=== PATIENT | female | born 1940 | race Caucasian/White ===

== ENCOUNTER 2021-12-21 18:58 | Inpatient (IN) ==
[2021-12-21] MEDS ORDERED: ONDANSETRON 4 MG/2 ML VIAL IV ONE (19:14)
[2021-12-21] MEDS ORDERED: 0.9 % SODIUM CHLORIDE 500 ML IV ONE (19:14)
[2021-12-21 19:30] LABS: POC Calcium, Ionized 0.94 (1.16-1.32); POC Creatinine 2.4 (0.6-1.2); POC Potassium 4.3 (3.3-5.1)
[2021-12-21] MEDS ORDERED: AZITHROMYCIN 250 MG TABLET PO ONE (19:38)
[2021-12-21] MEDS ORDERED: cefTRIAXone 1 GM in DEXTROSE 5% IN WATER 50 ML IV SCH (19:45)
[2021-12-21 20:53] LABS: Basophils # (Auto) 0.04 K/mcL (0.00-0.30); Basophils % (Auto) 0.6 % (0.0-2.0); Eosinophils # (Auto) 0.07 K/mcL (0.00-0.70); Eosinophils % (Auto) 1.1 % (0.0-7.0); Hematocrit 35.7 % (34.1-44.9); Lymphocytes # (Auto) 1.45 K/mcL (1.50-4.80); Lymphocytes % (Auto) 21.9 % (15.5-49.0); Mean Cell Volume 82.3 fL (80.0-100.0); Mean Corpuscular HGB Conc 30.8 g/dL (31.0-36.0); Mean Platelet Volume 12.5 fL (7.4-10.4); Monocytes # (Auto) 0.67 K/mcL (0.10-0.90); Monocytes % (Auto) 10.1 % (1.0-12.0); Neutrophils % (Auto) 66.3 % (38.0-78.0); Platelet Count 194 K/mcL (140-440); RBC 4.34 M/mcL (3.59-5.38); Red Cell Distribution Width 18.7 % (11.5-14.5); WBC 6.6 K/mcL (4.5-11.0)
[2021-12-21 21:07] LABS: ALT/SGPT 17 U/L (<40); AST/SGOT 24 U/L (<32); Albumin 3.9 gm/dL (3.2-5.2); Albumin/Globulin Ratio 1.1 (1.0-2.3); Alkaline Phosphatase 166 U/L (39-117); Bilirubin,Total 1.3 mg/dL (0.1-1.0); Blood Urea Nitrogen 40 mg/dL (8-23); Calcium 8.7 mg/dL (8.6-10.4); Carbon Dioxide 19 mmol/L (22-30); Chloride 96 mmol/L (96-108); Globulin 3.5 gm/dL (2.2-3.7); Glomerular Filtration Rate 21; Glucose 121 mg/dL (70-105)
--- NOTE | 2021-12-21 21:54 | Internal Med History&Physical ---
HPI History of Present Illness Patient information: Note initiated : 12/21/21 at 9:48 pm Service Date, if different from initiated Date: [as above] Patient: Alva Soriano a 81 y/o F admitted on for Shortness of breath. Chief Complaint: [Weakness, dizziness] Chief complaint: Weakness, dizziness History of present illness: Ms. 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 Unfortunately her family are out of town and are unable to check up on her. She states that she tried to walk but felt quite dizzy. She denied any shortness of breath, chest pain or palpitations. She has been taking her medications as prescribed. She has not missed any doses. She states that no rmally she takes 2 tablets of torsemide in the morning, and 1 as needed in the evening. She states she has lost a significant amount of weight and usually weighs 150 pounds. She is now close to 134 pounds. She was recently seen by [facility] by Dr. Mcintyre last year to establish care. The patient will be admitted under the hospitalist service for further management and evaluation of her suspected drug-induced acute kidney injury as she was found to have a creatinine of 2.4. Review of Systems All systems: reviewed and no additional remarkable complaints except as stated Constitutional Constitutional: Present as per HPI EENT Eyes: Present as per HPI; Absent blurry vision Cardiovascular Cardiovascular: Present as per HPI; Absent chest pain, dyspnea, dyspnea on exertion, leg edema or palpatations Respiratory Respiratory: Present as per HPI; Absent cough, dyspnea, dyspnea on exertion, wheezing or stridor Gastrointestinal Gastrointestinal: Present as per HPI; Absent abdominal pain, diarrhea, dysphagia, hematemesis, melena, nausea or vomiting Musculoskeletal Musculoskeletal: Present as per HPI; Absent joint swelling, limited range of motion, muscle cramps, muscle weakness or myalgias Integumentary Integumentary: Present as per HPI; Absent erythema, new lesions, rash or wounds Neurological Neurological: Present as per HPI; Absent abnormal gait, behavioral changes, focal weakness, headache(s), loss of vision, numbness, sensory deficit or syncope Endocrine Endocrine: Absent change in body appearance, fatigue or heat intolerance Hematologic/Lymphatic Hematologic/Lymphatic: Present as per HPI PFSH PFSH All Active Problems (Updated 12/21/21 @ 21:52 by Dalia Root MD) Chronic atrial fibrillation (Acute) Nonischemic cardiomyopathy (Acute) Lactic acidosis (Acute) MALIK (acute kidney injury) (Acute) Chronic systolic congestive heart failure (Acute) Obstructive sleep apnea (Acute) Allergic reaction (Acute) Chest tightness (Acute) Chest pain (Acute) Hypersomnia (Chronic) Headache (Chronic) History of appendectomy (Chronic) History of hysterectomy (Chronic) Esophagitis (Chronic) Carcinoma in situ of breast (Chronic) Neuropathy (Chronic) Constipation (Chronic) Heart failure (Chronic) Dysuria (Chronic) Snoring (Chronic) Medical History (Updated 12/21/21 @ 21:52 by Dalia Root MD) Carcinoma in situ of breast Constipation Dysuria Esophagitis Headache Heart failure Hypersomnia Neuropathy Obstructive sleep apnea Snoring Surgical History History of appendectomy History of hysterectomy Family History Mother Rheumatic fever Social History occupational status: retired alcohol intake frequency: does not drink substance use type: does not use MEDS/ALLERGIES Home Medications and Allergies Home Medications Medication Instructions Recorded Confirmed Type carvedilol 3.125 mg tablet 3.125 mg PO BID 08/31/20 12/26/20 History sacubitril 24 mg-valsartan 26 mg 1 tab PO BID 08/31/20 12/26/20 History tablet (Entresto) tamoxifen 20 mg tablet 20 mg PO QDAY 08/31/20 12/26/20 History famotidine 10 mg tablet 10 mg PO QDAY 11/21/20 12/26/20 History ivabradine 5 mg tablet (Corlanor) 5 mg PO BID 11/21/20 12/26/20 History loratadine 10 mg tablet 10 mg PO QDAY #14 tab 12/15/20 12/26/20 Rx olopatadine 0.1 % eye drops 1 drp OPHTHALMIC (EYE) BID #5 ml 12/15/20 12/26/20 Rx aluminum-mag hydroxide-simethicone 15 ml PO PRN 12/21/21 12/21/21 History 400 mg-400 mg-40 mg/5 mL oral susp (Antacid-Antigas) amiodarone 200 mg tablet 1 tab PO QDAY 12/21/21 12/21/21 History apixaban 5 mg tablet (Eliquis) 1 tab PO BID 12/21/21 12/21/21 History dronedarone 400 mg tablet (Multaq) 1 tab PO BID 12/21/21 12/21/21 History furosemide 20 mg tablet 1 tab PO QDP PRN 12/21/21 12/21/21 History levothyroxine 75 mcg tablet 1 tab PO QDAY 12/21/21 12/21/21 History lorazepam 0.5 mg tablet 1 tab PO BIDP PRN 12/21/21 12/21/21 History metoprolol succinate 25 mg 1 tab PO BID 12/21/21 12/21/21 History tablet,extended release 24 hr mirtazapine 7.5 mg tablet 1 tab PO HS 12/21/21 12/21/21 History pantoprazole 40 mg tablet,delayed 1 tab PO QDAY 12/21/21 12/21/21 History release sacubitril 24 mg-valsartan 26 mg 1 tab PO BID 12/21/21 12/21/21 History tablet (Entresto) spironolactone 25 mg tablet 1 tab PO QDAY 12/21/21 12/21/21 History sucralfate 1 gram tablet 1 tab PO QID 12/21/21 12/21/21 History torsemide 20 mg tablet 1 tab PO BID 12/21/21 12/21/21 History Allergies Allergy/AdvReac Type Severity Reaction Status Date / Time Opioids - Morphine Analogues Allergy Unknown Vomiting Verified 12/21/21 19:02 EXAM Constitutional Vitals: Temp Pulse Resp BP Pulse Ox 97.6 F 59 L 27 H 100/67 91 12/21/21 18:58 12/21/21 21:16 12/21/21 21:16 12/21/21 21:16 12/21/21 21:16 General appearance: average body habitus Head Head exam: Present atraumatic, normal inspection and normocephalic Eye Eye exam: Present EOMI, normal appearance and PERRL; Absent conjunctival injection ENT ENT exam: Present mucous membranes dry and normal exam Neck Neck exam: Present full ROM; Absent lymphadenopathy Respiratory Respiratory exam: Present normal respiratory exam and CTAB; Absent decreased breath sounds, respiratory distress or wheezes Cardiovascular Cardiovascular exam: Present normal rate and rhythm, gallop and irregular rhythm; Absent JVD GI/Abdominal GI/Abdominal exam: Present normal bowel sounds and soft; Absent diminished bowel sounds, distended, guarding, mass, rebound or tenderness Neurological Exam Neurological exam: Present alert, CN II-XII intact and oriented X3 Psychiatric Psychiatric exam: Present normal affect and normal mood Skin Skin exam: Present intact and warm; Absent erythema, pallor, petechiae or rash DATA Data Completed and Pending Labs: Labs from last 24 hours 12/21/21 12/21/21 12/21/21 20:05 19:57 19:57 WBC RBC Hgb Hct POC Hct MCV MCH MCHC RDW Plt Count MPV Neut % (Auto) Lymph % (Auto) Mora % (Auto) Eos % (Auto) Baso % (Auto) Lymph # (Auto) Mora # (Auto) Eos # (Auto) Baso # (Auto) Absolute Neutrophils VBG Lactic Acid 2.1 H POC Sodium Sodium 135 POC Potassium Potassium 4.4 POC Chloride Chloride 96 Carbon Dioxide 19 L POC Total CO2 Anion Gap 20.0 H POC BUN BUN 40 H Creatinine 2.2 H POC Creatinine GFR Calculation 21 Glucose 121 H POC Glucose Calcium 8.7 POC WB Ioniz Calcium Total Bilirubin 1.3 H AST 24 ALT 17 Alkaline Phosphatase 166 H NT-Pro-B Natriuret Pep 93769.0 H Total Protein 7.4 Albumin 3.9 Globulin 3.5 Albumin/Globulin Ratio 1.1 Procalcitonin 0.19 H POC Troponin I 0.03 12/21/21 12/21/21 19:57 19:27 WBC 6.6 RBC 4.34 Hgb 11.0 L Hct 35.7 POC Hct 37.0 MCV 82.3 MCH 25.3 L MCHC 30.8 L RDW 18.7 H Plt Count 194 MPV 12.5 H Neut % (Auto) 66.3 Lymph % (Auto) 21.9 Mora % (Auto) 10.1 Eos % (Auto) 1.1 Baso % (Auto) 0.6 Lymph # (Auto) 1.45 L Mora # (Auto) 0.67 Eos # (Auto) 0.07 Baso # (Auto) 0.04 Absolute Neutrophils 4.39 VBG Lactic Acid POC Sodium 138 Sodium POC Potassium 4.3 Potassium POC Chloride 102 Chloride Carbon Dioxide POC Total CO2 23.0 Anion Gap POC BUN 42 H BUN Creatinine POC Creatinine 2.4 H GFR Calculation Glucose POC Glucose 122 H Calcium POC WB Ioniz Calcium 0.94 L Total Bilirubin AST ALT Alkaline Phosphatase NT-Pro-B Natriuret Pep Total Protein Albumin Globulin Albumin/Globulin Ratio Procalcitonin POC Troponin I A/P Assessment and plan (1) Carcinoma in situ of breast: Status: Chronic (2) Chronic systolic congestive heart failure: Status: Acute (3) MALIK (acute kidney injury): Status: Acute (4) Lactic acidosis: Status: Acute (5) Nonischemic cardiomyopathy: Status: Acute (6) Chronic atrial fibrillation: Status: Acute Narrative A/P Narrative: The patient has significant nonischemic cardiomyopathy and is followed by [facility]. She is on numerous cardiac medications which may have resulted in drug-induced acute kidney injury and transient hypotension. This is supported by the fact that she has a creatinine of 2.4 and a lactic acid of 2.1. To rule out any parenchymal lung disease such as pleural effusions or pulmonary edema, will obtain CT chest without contrast. Plan of Treatment: At this point, we will hold her home antihypertensives and diuretics. She will be gently hydrated with LR 75 cc an hour. She did receive a 500 cc bolus in the ER. We will repeat her BMP in the morning. Medication reconciliation is pending. Time Spent With Patient Time: Total time spent is greater than 50% in coordination of care (as documented) at patient's floor/unit and/or counseling patient: Total time spent with greater than 50% in coordination of care (as documented) at patient's floor/unit and/or counseling patient:: 50 - 70 minutes
[2021-12-21] MEDS ORDERED: LACTATED RINGERS 1,000 ML IV SCH (22:02)
[2021-12-21] MEDS ORDERED: ONDANSETRON 4 MG/2 ML VIAL IV PRN (22:02)
[2021-12-21] MEDS ORDERED: ACETAMINOPHEN 325 MG TABLET PO PRN (22:02)
[2021-12-21] MEDS: 0.9 % SODIUM CHLORIDE 10 ML SYRINGE IV SCH (22:37)
--- NOTE | 2021-12-22 01:11 | Emergency Department Note ---
HPI General Chief complaint: Shortness of Breath/Dyspnea Stated complaint: SOB Time Seen by Provider: 12/21/21 19:03 Source: patient and EMS Mode of arrival: EMS Limitations: no limitations History of Present Illness HPI Narrative: Narrative: 81-year-old female with history of congestive heart failure with AICD, atrial fibrillation, hypothyroidism presents from home for evaluation of about 3 days of generalized malaise, weakness, inability to care for herself. She lives at home alone, normally is checked in by her children but they are away right now. She denies any definite. She does have some slight increase in her shortness of breath. She has questionable change in her cough and she denies abdominal pain or nausea. Denies dysuria. She has been able to tolerate p.o. but has decreased p.o. intake and reports her diet has been poor she has had also decreased p.o. fluid intake from her normal. Related Data Home Medications Medication Instructions Recorded Confirmed carvedilol 3.125 mg tablet 3.125 mg PO BID 08/31/20 12/26/20 sacubitril 24 mg-valsartan 26 mg 1 tab PO BID 08/31/20 12/26/20 tablet (Entresto) tamoxifen 20 mg tablet 20 mg PO QDAY 08/31/20 12/26/20 famotidine 10 mg tablet 10 mg PO QDAY 11/21/20 12/26/20 ivabradine 5 mg tablet (Corlanor) 5 mg PO BID 11/21/20 12/26/20 aluminum-mag hydroxide-simethicone 15 ml PO PRN 12/21/21 12/21/21 400 mg-400 mg-40 mg/5 mL oral susp (Antacid-Antigas) amiodarone 200 mg tablet 1 tab PO QDAY 12/21/21 12/21/21 apixaban 5 mg tablet (Eliquis) 1 tab PO BID 12/21/21 12/21/21 dronedarone 400 mg tablet (Multaq) 1 tab PO BID 12/21/21 12/21/21 furosemide 20 mg tablet 1 tab PO QDP PRN 12/21/21 12/21/21 levothyroxine 75 mcg tablet 1 tab PO QDAY 12/21/21 12/21/21 lorazepam 0.5 mg tablet 1 tab PO BIDP PRN 12/21/21 12/21/21 metoprolol succinate 25 mg 1 tab PO BID 12/21/21 12/21/21 tablet,extended release 24 hr mirtazapine 7.5 mg tablet 1 tab PO HS 12/21/21 12/21/21 pantoprazole 40 mg tablet,delayed 1 tab PO QDAY 12/21/21 12/21/21 release sacubitril 24 mg-valsartan 26 mg 1 tab PO BID 12/21/21 12/21/21 tablet (Entresto) spironolactone 25 mg tablet 1 tab PO QDAY 12/21/21 12/21/21 sucralfate 1 gram tablet 1 tab PO QID 12/21/21 12/21/21 torsemide 20 mg tablet 1 tab PO BID 12/21/21 12/21/21 Previous Rx's Medication Instructions Recorded loratadine 10 mg tablet 10 mg PO QDAY #14 tab 12/15/20 olopatadine 0.1 % eye drops 1 drp OPHTHALMIC (EYE) BID #5 ml 12/15/20 Allergies Allergy/AdvReac Type Severity Reaction Status Date / Time Opioids - Morphine Analogues Allergy Unknown Vomiting Verified 12/21/21 19:02 Review of Systems ROS ROS Narrative: Narrative: All systems ED: reviewed and negative except as stated. [facility] Narrative Patient History Narrative: Narrative: Medical/Surgical/Family History All Active Problems (Updated 12/22/21 @ 01:13 by Eyad Sargent DO) Acute kidney injury (Acute) Pneumonia (Acute) Pleural effusion (Acute) Chronic atrial fibrillation (Acute) Nonischemic cardiomyopathy (Acute) Lactic acidosis (Acute) MALIK (acute kidney injury) (Acute) Chronic systolic congestive heart failure (Acute) Obstructive sleep apnea (Acute) Allergic reaction (Acute) Chest tightness (Acute) Chest pain (Acute) Hypersomnia (Chronic) Headache (Chronic) History of appendectomy (Chronic) History of hysterectomy (Chronic) Esophagitis (Chronic) Carcinoma in situ of breast (Chronic) Neuropathy (Chronic) Constipation (Chronic) Heart failure (Chronic) Dysuria (Chronic) Snoring (Chronic) Medical History Carcinoma in situ of breast Constipation Dysuria Esophagitis Headache Heart failure Hypersomnia Neuropathy Obstructive sleep apnea Snoring Surgical History History of appendectomy History of hysterectomy Family History Mother Rheumatic fever Social History Smoking Status: Never smoker Alcohol Intake Frequency: does not drink Substance Use: does not use Exam Narrative Narrative: Narrative: General Limitations: no limitations General appearance: Present alert and in no apparent distress Head Head: Present atraumatic and normocephalic Eye Eye: Present normal appearance and EOMI ENT ENT: Present normal exam and mucous membranes dry Neck Neck: Present normal inspection and full ROM Chest Chest: Present normal inspection and symmetric chest wall rise Respiratory Respiratory: Present decreased breath sounds; Absent respiratory distress Cardiovascular Cardiovascular: Present regular rate and normal rhythm Adbominal Abdominal: Present soft; Absent tenderness Extremities Extremities: Present normal inspection and full ROM Back Back: Absent CVA tenderness (R) or CVA tenderness (L) Neurological Neurological: Present alert, oriented X3 and normal gait; Absent motor sensory deficit Psychiatric Psychiatric: Present normal affect and normal mood Skin Skin: Present warm (WNL), dry and normal color Course Vital Signs Vital signs: Vital Signs Temperature 97.6 F 12/21/21 18:58 Pulse Rate 80 12/21/21 18:58 Respiratory Rate 20 12/21/21 18:58 Blood Pressure 115/81 12/21/21 18:58 Pulse Oximetry (%) 95 12/21/21 18:58 Temperature 97.1 F 12/21/21 22:00 Pulse Rate 66 12/22/21 00:47 Respiratory Rate 18 12/22/21 00:47 Blood Pressure 99/67 12/22/21 00:52 Pulse Oximetry (%) 96 12/22/21 00:47 [facility] MDM Narrative Medical decision making narrative: Narrative: Patient complaining of general malaise and weakness. Will obtain work-up to evaluate for this including infectious causes, cardiac etiology, dehydration, malnutrition and failure to thrive. Labs and studies reviewed. Patient appears to have pneumonia versus pleural effusion on the right. With her shortness of breath and questionable change in cough will cover as pneumonia, send procalcitonin. Troponin is normal, EKG is paced and at baseline. I have low suspicion for acute cardiac etiology. She was found to have acute renal failure and due to her significant heart failure w as given more gentle IV hydration. She does not have appear to have severe sepsis/septic shock. She was admitted for further care Lab Data Lab results reviewed: Yes I reviewed the patient's lab results. Result diagrams: 12/21/21 19:57 12/21/21 19:57 Labs: Lab Results 12/21/21 12/21/21 12/21/21 Range/Units 19:27 19:57 19:57 WBC 6.6 (4.5-11.0) K/mcL RBC 4.34 (3.59-5.38) M/mcL Hgb 11.0 L (11.2-15.7) g/dL Hct 35.7 (34.1-44.9) % POC Hct 37.0 (36-48) MCV 82.3 (80.0-100.0) fL MCH 25.3 L (26.0-34.0) pg MCHC 30.8 L (31.0-36.0) g/dL RDW 18.7 H (11.5-14.5) % Plt Count 194 (140-440) K/mcL MPV 12.5 H (7.4-10.4) fL Neut % (Auto) 66.3 (38.0-78.0) % Lymph % (Auto) 21.9 (15.5-49.0) % Grady % (Auto) 10.1 (1.0-12.0) % Eos % (Auto) 1.1 (0.0-7.0) % Baso % (Auto) 0.6 (0.0-2.0) % Lymph # (Auto) 1.45 L (1.50-4.80) K/mcL Grady # (Auto) 0.67 (0.10-0.90) K/mcL Eos # (Auto) 0.07 (0.00-0.70) K/mcL Baso # (Auto) 0.04 (0.00-0.30) K/mcL Absolute Neutrophils 4.39 (1.80-8.00) K/mcL VBG Lactic Acid 2.1 H (0.5-2.0) mmol/L POC Sodium 138 (133-145) Sodium 135 (133-145) mmol/L POC Potassium 4.3 (3.3-5.1) Potassium 4.4 (3.3-5.1) mmol/L POC Chloride 102 (96-108) Chloride 96 (96-108) mmol/L Carbon Dioxide 19 L (22-30) mmol/L POC Total CO2 23.0 (22-30) Anion Gap 20.0 H (8.0-16.0) POC BUN 42 H (6-20) BUN 40 H (8-23) mg/dL Creatinine 2.2 H (0.6-1.1) mg/dL POC Creatinine 2.4 H (0.6-1.2) GFR Calculation 21 Glucose 121 H (70-105) mg/dL POC Glucose 122 H (70-105) Calcium 8.7 (8.6-10.4) mg/dL POC WB Ioniz Calcium 0.94 L (1.16-1.32) Total Bilirubin 1.3 H (0.1-1.0) mg/dL AST 24 (<32) U/L ALT 17 (<40) U/L Alkaline Phosphatase 166 H (39-117) U/L NT-Pro-B Natriuret Pep 78618.0 H (<450.0) pg/mL Total Protein 7.4 (5.9-8.4) gm/dL Albumin 3.9 (3.2-5.2) gm/dL Globulin 3.5 (2.2-3.7) gm/dL Albumin/Globulin Ratio 1.1 (1.0-2.3) Procalcitonin (<0.10) ng/mL POC Troponin I (0.02-0.08) 12/21/21 12/21/21 Range/Units 19:57 20:05 WBC (4.5-11.0) K/mcL RBC (3.59-5.38) M/mcL Hgb (11.2-15.7) g/dL Hct (34.1-44.9) % POC Hct (36-48) MCV (80.0-100.0) fL MCH (26.0-34.0) pg MCHC (31.0-36.0) g/dL RDW (11.5-14.5) % Plt Count (140-440) K/mcL MPV (7.4-10.4) fL Neut % (Auto) (38.0-78.0) % Lymph % (Auto) (15.5-49.0) % Grady % (Auto) (1.0-12.0) % Eos % (Auto) (0.0-7.0) % Baso % (Auto) (0.0-2.0) % Lymph # (Auto) (1.50-4.80) K/mcL Grady # (Auto) (0.10-0.90) K/mcL Eos # (Auto) (0.00-0.70) K/mcL Baso # (Auto) (0.00-0.30) K/mcL Absolute Neutrophils (1.80-8.00) K/mcL VBG Lactic Acid (0.5-2.0) mmol/L POC Sodium (133-145) Sodium (133-145) mmol/L POC Potassium (3.3-5.1) Potassium (3.3-5.1) mmol/L POC Chloride (96-108) Chloride (96-108) mmol/L Carbon Dioxide (22-30) mmol/L POC Total CO2 (22-30) Anion Gap (8.0-16.0) POC BUN (6-20) BUN (8-23) mg/dL Creatinine (0.6-1.1) mg/dL POC Creatinine (0.6-1.2) GFR Calculation Glucose (70-105) mg/dL POC Glucose (70-105) Calcium (8.6-10.4) mg/dL POC WB Ioniz Calcium (1.16-1.32) Total Bilirubin (0.1-1.0) mg/dL AST (<32) U/L ALT (<40) U/L Alkaline Phosphatase (39-117) U/L NT-Pro-B Natriuret Pep (<450.0) pg/mL Total Protein (5.9-8.4) gm/dL Albumin (3.2-5.2) gm/dL Globulin (2.2-3.7) gm/dL Albumin/Globulin Ratio (1.0-2.3) Procalcitonin 0.19 H (<0.10) ng/mL POC Troponin I 0.03 (0.02-0.08) ED POC Tests ED POC Tests: PABLO - Influenza A Negative PABLO - Influenza B Negative PABLO - SARS Antigen Negative Radiology Data Radiology results reviewed: Yes I reviewed the patient's radiology results. EKG Data EKG #1: EKG attestation: Yes I reviewed and interpreted this EKG. EKG results narrative: AV paced at a rate of 65. Left axis. TC 515. Appropriate ST discordance, no acute ST-T changes. Paced rhythm otherwise normal EKG CC TIME Critical Care Time Critical Care Time: Yes Attestation: Approximately 30 minutes of critical care time was used in order to assess and manage the high probability of imminent or life threatening deterioration to acute kidney injury with underlying heart failure which required my highest level of preparedness and interventions with frequent patient assessments. This time is excluding time spent on separately billable procedures. Discharge Plan Patient/Caregiver Discharge Instructions Pt seen by [facility]ER/PA only: No Clinical Impression: Acute kidney injury, Pneumonia, Pleural effusion Patient Disposition: Xfer As Inpt ([facility]) Discharge Date/Time: 12/21/21 22:00 Discharge Comment: Discharged to the medical floor room 125 @ 2150
[2021-12-22] MEDS: 0.9 % SODIUM CHLORIDE 10 ML SYRINGE IV SCH (04:48)
--- NOTE | 2021-12-22 05:45 | XRay Report ---
INDICATION: weak TECHNIQUE: AP portable upright chest x-ray COMPARISON: Previous chest x-rays dated 11/21/2020, 10/11/2020 FINDINGS:No change in left-sided cardiac pacemaker and transvenous pacemaker leads. Lungs:Diffuse pulmonary parenchymal infiltrates, right worse than left. There is right basilar consolidation. Appearance is consistent with congestive heart failure and pulmonary edema. Right basilar pneumonia is also possible. Clinical correlation and follow-up radiographs are recommended. Heart, vascular:There is generalized cardiomegaly, essentially unchanged. Mediastinum, yanet:No mediastinal widening. No hilar mass Pleura:Probable right pleural fluid. This is not well evaluated on this AP portable chest x-ray Skeletal:Negative. IMPRESSION: 1. Cardiomegaly and diffuse infiltrates consistent with congestive heart failure 2. Right basilar consolidation. This may be due to pulmonary edema but pneumonia is possible. Interpreted and Authenticated by: Jr Schumacher 12/22/21
--- NOTE | 2021-12-22 05:56 | Cat Scan Report ---
INDICATION: Hypoxemia, resp failure COMPARISON: Chest x-ray dated 12/21/2021. Previous CT scan dated 12/26/2020 TECHNIQUE: Axial noncontrast enhanced images through the chest. Sagittally and coronally reformatted images. MIP reformatted images. FINDINGS: The examination was initially interpreted by [facility] Lungs:There is septal thickening consistent with interstitial pulmonary edema. There is bilateral lower lobe consolidation most consistent with volume loss. There is mild right middle lobe and left lower lobe bronchiectasis. This is nonspecific. Lungs are consistent with congestive heart failure. Lower lobe pneumonia is not excluded and the appropriate clinical circumstances Mediastinum, vascular:Nonspecific mediastinal lymphadenopathy. Main pulmonary artery is enlarged. Main pulmonary artery measures 2.7 cm in cross-sectional diameter Heart:There is marked four-chamber cardiac enlargement. No pericardial effusion. There is calcified coronary artery disease. There is no pericardial effusion Pleura:Moderate to large right pleural effusion and small left effusion. Appearance is consistent with congestive heart failure Axilla, supraclavicular regions, chest wall:Surgical clips in the right axilla. Patient has undergone previous right mastectomy. There is a cardiac pacemaker in the anterior left hemithorax. Musculoskeletal:No thoracic compression fractures. No lytic or sclerotic lesions. No fractures. Upper Abdomen:There is a 2 cm low-density mass in the right lobe of the liver consistent with cyst. This is unchanged since 12/26/2020 IMPRESSION: 1. Cardiomegaly and findings consistent with congestive heart failure 2. Moderate to large right pleural effusion 3. Bibasilar parenchymal density consistent with volume loss. Pneumonia is not excluded in the appropriate clinical circumstances 4. Coronary artery calcification The exam was performed using radiation dose optimization techniques including, but not limited to, automated exposure control, adjustment of the mA and/or kV according to patient size and use of iterative reconstruction technique. Interpreted and Authenticated by: Jr Schumacher 12/22/21
[2021-12-22 06:05] LABS: Basophils # (Auto) 0.05 K/mcL (0.00-0.30); Basophils % (Auto) 0.8 % (0.0-2.0); Eosinophils # (Auto) 0.02 K/mcL (0.00-0.70); Eosinophils % (Auto) 0.3 % (0.0-7.0); Hematocrit 34.7 % (34.1-44.9); Hemoglobin 10.5 g/dL (11.2-15.7); Lymphocytes # (Auto) 0.79 K/mcL (1.50-4.80); Lymphocytes % (Auto) 12.9 % (15.5-49.0); Mean Cell Volume 84.2 fL (80.0-100.0); Mean Corpuscular HGB Conc 30.3 g/dL (31.0-36.0); Mean Platelet Volume 11.6 fL (7.4-10.4); Monocytes # (Auto) 0.87 K/mcL (0.10-0.90); Monocytes % (Auto) 14.2 % (1.0-12.0); Neutrophils % (Auto) 71.8 % (38.0-78.0); Platelet Count 161 K/mcL (140-440); RBC 4.12 M/mcL (3.59-5.38); Red Cell Distribution Width 18.6 % (11.5-14.5); WBC 6.1 K/mcL (4.5-11.0)
[2021-12-22 06:28] LABS: Blood Urea Nitrogen 51 mg/dL (8-23); Calcium 8.1 mg/dL (8.6-10.4); Carbon Dioxide 20 mmol/L (22-30); Chloride 100 mmol/L (96-108); Glomerular Filtration Rate 19; Glucose 126 mg/dL (70-105)
[2021-12-22] MEDS ORDERED: DOCUSATE SODIUM 100 MG CAPSULE PO SCH (09:00)
[2021-12-22] MEDS ORDERED: AMIODARONE HCL 200 MG TABLET PO SCH (09:00)
[2021-12-22] MEDS ORDERED: LEVOTHYROXINE 75 MCG TABLET PO SCH (09:00)
[2021-12-22] MEDS ORDERED: APIXABAN 5 MG TABLET PO SCH (09:00)
--- NOTE | 2021-12-22 11:51 | Discharge Summary ---
Discharge Provider Provider IMPORTANT FOLLOW-UP INFORMATION FOR PCP: Patient information: Note initiated : 12/22/21 at 11:50 am Service Date, if different from initiated Date: [] Patient: Alva Soriano a 81 y/o F admitted on 12/21/21 for Shortness of breath. Chief Complaint: [Dizzness, weakness] Date of admission: 12/21/21 22:00 Discharge date: 12/22/21 Primary care physician: Savita Hatch Consults: 12/21/21 Consult to Physician [CONS] Stat Comment: Consulting Provider: Dalia Root Reason For Exam: Physician to Consult Attending physician on discharge: Dalia Root COURSE Hospital Course Hospital course: Ms. 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 Unfortunately her family are out of town and are unable to check up on her. She states that she tried to walk but felt quite dizzy. She denied any shortness of breath, chest pain or palpitations. She has been taking her medications as prescribed. She has not missed any doses. She states that normally she takes 2 tablets of torsemide in the morning, and 1 as needed in the evening. She states she has lost a significant amount of weight and usually weighs 150 pounds. She is now close to 134 pounds. She was recently seen by [facility] cardiology clinic by Dr. Mcintyre last year to establish care. The patient will be admitted under the hospitalist service for further management and evaluation of her suspected drug-induced acute kidney injury as she was found to have a creatinine of 2.4. Hospital course: The patient has a complex cardiac hx 2/2 non-ICM w/ ICD implantation. She is on entresto, ivabradine, torsemide and aldactone. With her lactic acidosis, MALIK and soft BP, these meds were initially held and she was gently hydrated with IVF as her JVD was <10cm, with clear lungs on auscultation. Her labs were re-checked this AM and her LA has worsened from 2.1 -> 3.5. Her MALIK has not improved, and she is now requiring 3.5L of supplemental O2. Her extremities are cool to touch. She will be transferred to outside facility with cardiology services to better manage her care. She will need to be worked up for cardiogenic shock. Discharge diagnosis: HFrEF, MALIK, lactic acidosis Time Spent with Patient Time attestation: Total time spent providing and/or coordinating discharge services: Time spent: Greater than 30 minutes EXAM Constitutional Vitals: Temp Pulse Resp BP Pulse Ox 97.8 F 64 20 105/66 92 12/22/21 11:41 12/22/21 04:02 12/22/21 11:41 12/22/21 11:41 12/22/21 11:41 General appearance: average body habitus Head Head exam: Present atraumatic, normal inspection and normocephalic Expanded ENT Exam Throat exam: Present normal inspection Neck Neck exam: Present full ROM and normal inspection Respiratory Respiratory exam: Present normal respiratory exam and CTAB Cardiovascular Cardiovascular exam: Present gallop, irregular rhythm and JVD GI/Abdominal GI/Abdominal exam: Present normal bowel sounds and soft; Absent distended or guarding Neurological Exam Neurological exam: Present alert and oriented X3; Absent altered Psychiatric Psychiatric exam: Present normal affect Discharge Data Data Completed and Pending Labs on day of discharge: Labs from last 24 hours 12/22/21 12/22/21 12/22/21 09:20 05:08 05:08 WBC 6.1 RBC 4.12 Hgb 10.5 L Hct 34.7 POC Hct MCV 84.2 MCH 25.5 L MCHC 30.3 L RDW 18.6 H Plt Count 161 MPV 11.6 H Neut % (Auto) 71.8 Lymph % (Auto) 12.9 L [place] % (Auto) 14.2 H Eos % (Auto) 0.3 Baso % (Auto) 0.8 Lymph # (Auto) 0.79 L [place] # (Auto) 0.87 Eos # (Auto) 0.02 Baso # (Auto) 0.05 Absolute Neutrophils 4.39 VBG Lactic Acid 3.5 H POC Sodium Sodium 135 POC Potassium Potassium 5.4 H POC Chloride Chloride 100 Carbon Dioxide 20 L POC Total CO2 Anion Gap 15.0 POC BUN BUN 51 H Creatinine 2.3 H POC Creatinine GFR Calculation 19 Glucose 126 H POC Glucose Calcium 8.1 L POC WB Ioniz Calcium Total Bilirubin AST ALT Alkaline Phosphatase NT-Pro-B Natriuret Pep Total Protein Albumin Globulin Albumin/Globulin Ratio Procalcitonin POC Troponin I 12/21/21 12/21/21 12/21/21 23:48 20:05 19:57 WBC RBC Hgb Hct POC Hct MCV MCH MCHC RDW Plt Count MPV Neut % (Auto) Lymph % (Auto) [place] % (Auto) Eos % (Auto) Baso % (Auto) Lymph # (Auto) [place] # (Auto) Eos # (Auto) Baso # (Auto) Absolute Neutrophils VBG Lactic Acid 2.6 H POC Sodium Sodium POC Potassium Potassium POC Chloride Chloride Carbon Dioxide POC Total CO2 Anion Gap POC BUN BUN Creatinine POC Creatinine GFR Calculation Glucose POC Glucose Calcium POC WB Ioniz Calcium Total Bilirubin AST ALT Alkaline Phosphatase NT-Pro-B Natriuret Pep Total Protein Albumin Globulin Albumin/Globulin Ratio Procalcitonin 0.19 H POC Troponin I 0.03 12/21/21 12/21/21 12/21/21 19:57 19:57 19:27 WBC 6.6 RBC 4.34 Hgb 11.0 L Hct 35.7 POC Hct 37.0 MCV 82.3 MCH 25.3 L MCHC 30.8 L RDW 18.7 H Plt Count 194 MPV 12.5 H Neut % (Auto) 66.3 Lymph % (Auto) 21.9 [place] % (Auto) 10.1 Eos % (Auto) 1.1 Baso % (Auto) 0.6 Lymph # (Auto) 1.45 L [place] # (Auto) 0.67 Eos # (Auto) 0.07 Baso # (Auto) 0.04 Absolute Neutrophils 4.39 VBG Lactic Acid 2.1 H POC Sodium 138 Sodium 135 POC Potassium 4.3 Potassium 4.4 POC Chloride 102 Chloride 96 Carbon Dioxide 19 L POC Total CO2 23.0 Anion Gap 20.0 H POC BUN 42 H BUN 40 H Creatinine 2.2 H POC Creatinine 2.4 H GFR Calculation 21 Glucose 121 H POC Glucose 122 H Calcium 8.7 POC WB Ioniz Calcium 0.94 L Total Bilirubin 1.3 H AST 24 ALT 17 Alkaline Phosphatase 166 H NT-Pro-B Natriuret Pep 98633.0 H Total Protein 7.4 Albumin 3.9 Globulin 3.5 Albumin/Globulin Ratio 1.1 Procalcitonin POC Troponin I Discharge Plan Patient/Caregiver Discharge Instructions Activity: increase activity as tolerated Prescriptions: Continued carvedilol 3.125 mg tablet 3.125 mg PO BID 0RF Rx Instructions: must administer with a meal/food Entresto 24-26 mg tablet 1 tab PO BID 0RF tamoxifen 20 mg tablet 20 mg PO QDAY 0RF famotidine 10 mg Tablet 10 mg PO QDAY 0RF Corlanor 5 mg Tablet 5 mg PO BID 0RF olopatadine 0.1 % drops 1 drp ophthalmic (eye) BID Qty: 5 0RF Rx Instructions: separate doses by at least 6-8 hours loratadine 10 mg tablet 10 mg PO QDAY Qty: 14 0RF torsemide 20 mg tablet 1 tab PO BID 0RF amiodarone 200 mg tablet 1 tab PO QDAY 0RF sucralfate 1 gram tablet 1 tab PO QID 0RF spironolactone 25 mg tablet 1 tab PO QDAY 0RF levothyroxine 75 mcg tablet 1 tab PO QDAY 0RF lorazepam 0.5 mg tablet 1 tab PO BIDP PRN (Reason: Anxiety) 0RF pantoprazole 40 mg tablet,delayed release (DR/EC) 1 tab PO QDAY 0RF furosemide 20 mg tablet 1 tab PO QDP PRN (Reason: CHF) 0RF metoprolol succinate 25 mg tablet extended release 24 hr 1 tab PO BID 0RF alum-mag hydroxide-simeth [Antacid-[place]] 400-400-40 mg/5 mL suspension 15 ml PO PRN (Reason: Indigestion) 0RF mirtazapine 7.5 mg tablet 1 tab PO HS 0RF Multaq 400 mg tablet 1 tab PO BID 0RF Eliquis 5 mg tablet 1 tab PO BID 0RF Entresto 24-26 mg tablet 1 tab PO BID 0RF Follow Up Plan Follow up with: Savita Hatch [Primary Care Provider] - Patient Disposition: Xfer [facility] Plan of Treatment: At this point, we will hold her home antihypertensives and diuretics. She will be gently hydrated with LR 75 cc an hour. She did receive a 500 cc bolus in the ER. We will repeat her BMP in the morning. Medication reconciliation is pending. Rehab Potential: Fair I certify that the patient requires SNF services: No Overall status at discharge: patient is back to baseline Discharge Orders: Discharge Order (Routine); Ordered 12/22/21 Ordered By: Dalia JIMÉNEZ VTE Deep Vein Thrombosis/Pulmonary Embolism Present on Admission: No
[2021-12-22] MEDS ORDERED: SENNOSIDES 1 TABLET PO SCH (21:00)
--- NOTE | 2021-12-24 12:40 | EKG ---
[facility] Test Date: 2021-12-21 Pat Name: Alva Soriano Department: ED Room: Gender: Female Supervisor Road Administrator: AJ : 1940 Requested By: Eyad Sargent Order Number: [id number] Reading MD: Rivera Aguilar Measurements Intervals [place] Rate: 65 P: 66 ME: 38 QRS: -53 QRSD: 127 T: 113 QT: 495 QTc: 515 Interpretive Statements A-V dual-paced rhythm with some inhibition No further analysis attempted due to paced rhythm Electronically Signed On 12-24-2021 12:40:26 PDT by Rivera Aguilar /[id number]
== END 2021-12-22 13:10 | disposition short-term general hospital (02) | DRG 682 ==
LOC: ED 18:58 → MEDSUR 22:00
PROVIDERS: ADMIT Student in an Organized Health Care Education/Training Program; ATTEND Student in an Organized Health Care Education/Training Program